=== PATIENT | male | born 1950 | race Hispanic/Latino ===

== ENCOUNTER 2025-06-27 12:11 | Inpatient (IN) | payer OTHER ==
[2025-06-27] VITALS (9 sets, daily range): BP systolic 93–136; BP diastolic 70–91; PULSE 102–112; RESP 16–20; TEMP 98.3–100.2; O2SAT 95–100
[~2025-06-27] VITALS: Ht 175.3 cm; Wt 88.5 kg
[2025-06-27] MEDS: SODIUM CHLORIDE 0.9% 500ML 500 ML IV STA (14:13)
[2025-06-27] MEDS: ACETAMINOPHEN 325 MG TAB PO STA (14:13)
[2025-06-27] MEDS ORDERED: ACETAMINOPHEN 325 MG TAB PO PRN (20:30)
[2025-06-27] MEDS ORDERED: ONDANSETRON HCL INJ 2MG/ML 2ML 2 MG/ML VIAL IV PRN (20:30)
[2025-06-27] MEDS ORDERED: HYDRALAZINE HCL 25 MG TAB PO PRN (20:30)
[2025-06-27] MEDS: ALBUTEROL/IPRATROPIUM 3 ML NEB NEB SCH (20:30)
[2025-06-27] MEDS: ALBUTEROL/IPRATROPIUM 3 ML NEB NEB PRN (20:33)
[2025-06-27] MEDS: ACETAMINOPHEN 1000 MG/100 ML IV ONE (20:39)
[2025-06-27] MEDS: SODIUM CHLORIDE 0.9% 1000ML 1,000 ML IV SCH (21:53)
[2025-06-28] VITALS (13 sets, daily range): BP systolic 125–141; BP diastolic 88–99; PULSE 80–103; RESP 18–20; TEMP 98–98.7; O2SAT 96–100
[2025-06-28 08:05] LABS: BASOPHILS % 0.4 % (0.0-1.0); EOSINOPHILS % 2.5 % (0.0-6.0); LYMPHOCYTES % 15.2 % (18.0-39.1); MONOCYTES % 10.2 % (4.4-11.3); NEUTROPHILS % 71.3 % (38.7-80.0); RED CELL DISTRIBUTION WIDTH 13.1 % (11.7-14.4)
[2025-06-28 08:41] LABS: EST GLOMERULAR FILTRATION RATE 61.0 ML/MIN (>=60)
[2025-06-28 10:36] LABS: CORONAVIRUS COVID-19 AG NEGATIVE (NEGATIVE)
[2025-06-28] MEDS: ALBUTEROL/IPRATROPIUM 3 ML NEB NEB SCH (12:51)
[2025-06-29] VITALS (15 sets, daily range): BP systolic 118–151; BP diastolic 80–100; PULSE 85–104; RESP 16–20; TEMP 97.6–98.6; O2SAT 96–100
[2025-06-29 07:02] LABS: BASOPHILS % 0.6 % (0.0-1.0); EOSINOPHILS % 4.1 % (0.0-6.0); LYMPHOCYTES % 15.8 % (18.0-39.1); MONOCYTES % 11.9 % (4.4-11.3); NEUTROPHILS % 67.2 % (38.7-80.0); RED CELL DISTRIBUTION WIDTH 13.2 % (11.7-14.4)
[2025-06-29 07:25] LABS: EST GLOMERULAR FILTRATION RATE 58.0 ML/MIN (>=60)
[2025-06-30] VITALS (7 sets, daily range): BP systolic 118–136; BP diastolic 84–85; PULSE 72–101; RESP 18–22; TEMP 98.3; O2SAT 95–100
== END 2025-06-30 12:05 | disposition home or self-care (01) | DRG 871 ==
LOC: FSED 12:30 → ERHOLD 13:43 → MED/SURG3 16:00
PROVIDERS: ADMIT Internal Medicine; ATTEND Internal Medicine
DX: A41.9 Sepsis, unspecified organism (principal); J18.9 Pneumonia, unspecified organism; J96.01 Acute respiratory failure with hypoxia; J44.1 Chronic obstructive pulmonary disease with (acute) exacerbation; N17.9 Acute kidney failure, unspecified; J47.1 Bronchiectasis with (acute) exacerbation; J90 Pleural effusion, not elsewhere classified; I25.10 Atherosclerotic heart disease of native coronary artery without angina pectoris; I11.9 Hypertensive heart disease without heart failure; E86.0 Dehydration; J47.9 Bronchiectasis, uncomplicated; K21.9 Gastro-esophageal reflux disease without esophagitis; K80.20 Calculus of gallbladder without cholecystitis without obstruction; I95.9 Hypotension, unspecified; Z87.891 Personal history of nicotine dependence; Z11.52 Encounter for screening for COVID-19; Z95.1 Presence of aortocoronary bypass graft; Z85.9 Personal history of malignant neoplasm, unspecified; Z92.21 Personal history of antineoplastic chemotherapy; Z92.3 Personal history of irradiation
CPT/HCPCS: 0223U; 36415; 71250; 80048; 80053; 81003; 83605; 83880; 84484; 85025; 87040; 87070; 87205; 87400; 93005; 94640; 94799; 99283; J0696; J2470; J7030; J7040; J7050